=== PATIENT | female | born 1965 | race Caucasian/White ===

== ENCOUNTER 2023-12-21 20:45 | Emergency (ER) | payer BC ==
[~2023-12-21] VITALS: Ht 167.6 cm; Wt 72.6 kg
[2023-12-21 21:06] VITALS: TEMP 98
[2023-12-21 21:33] VITALS: O2SAT 98
[2023-12-21 21:35] LABS: BASOPHILS # (AUTO) 0.1 K/uL (0.0-0.2); BASOPHILS % (AUTO) 0.8 % (0.0-2.0); EOSINOPHILS # (AUTO) 0.2 K/uL (0.0-0.7); EOSINOPHILS % (AUTO) 2.3 % (0.0-6.0); HEMATOCRIT 40 % (33-45); HEMOGLOBIN 13.3 g/dL (11.5-14.8); LYMPHOCYTES # (AUTO) 3.6 K/uL (0.8-4.8); LYMPHOCYTES % (AUTO) 37.6 % (20.0-44.0); MEAN CORPUSCULAR HEMOGLOBIN 29 PG (26.0-33.0); MEAN CORPUSCULAR HGB CONC 34 g/dl (31.0-36.0); MEAN CORPUSCULAR VOLUME 86 fL (82-100); MONOCYTES % (AUTO) 10.1 % (2.0-12.0); NEUTROPHILS # (AUTO) 4.7 K/uL (1.8-8.9); NEUTROPHILS % (AUTO) 49.2 % (43.0-81.0); PLATELET COUNT (AUTO) 244 K/uL (150-450); RED BLOOD CELL COUNT(AUTO) 4.59 MIL/uL (4.0-5.2); RED CELL DISTRIBUTION WIDTH 13.8 % (11.5-15.0); WHITE BLOOD COUNT (AUTO) 9.5 K/uL (4.3-11.0)
[2023-12-21 21:42] LABS: CALCIUM, SERUM 9.5 mg/dL (8.5-10.1); CARBON DIOXIDE 26 mmol/L (21-32); CHLORIDE 101 mmol/L (98-107); CREATININE 0.8 mg/dL (0.6-1.3); GLUCOSE 103 mg/dL (74-106); POTASSIUM 4.1 mmol/L (3.5-5.1); SODIUM SERUM 137 mmol/L (136-145); UREA NITROGEN, BLOOD 26 mg/dL (7-18)
[2023-12-21] MEDS ORDERED: ASPIRIN 325 MG TABLET ONE (21:44)
[2023-12-21] MEDS ORDERED: NITROGLYCERIN 0.4 MG/TAB BOTTLE ONE (21:44)
[2023-12-21] MEDS: ASPIRIN 325 MG TABLET PO ONE (21:49)
[2023-12-21 21:50] VITALS: BP 124/71
[2023-12-21] MEDS: NITROGLYCERIN 0.4 MG/TAB BOTTLE SL ONE (21:50)
[2023-12-21 21:55] LABS: NT-PRO BNP 50 pg/mL (0-125)
== END 2023-12-21 22:34 | disposition left against medical advice (07) ==
LOC: ER 20:48
DX: R07.89 Other chest pain (principal)
CPT/HCPCS: 36415; 71045-TC; 80048-TC; 83880; 84484-TC; 85025-TC